=== PATIENT | female | born 1955 | race Caucasian/White ===

== ENCOUNTER 2023-12-16 13:37 | Outpatient (CLI) | payer MEDICARE, BC, SELFPAY | END 2023-12-16 13:38 | disposition home or self-care (01) | LOC: AMB 12-19 02:51 | PROVIDERS: PCP Family Medicine; Visit Provider Family Medicine | DX: R42 Dizziness and giddiness (principal) | CPT/HCPCS: A0425; A0429 ==

== ENCOUNTER 2023-12-16 14:12 | Emergency (ER) | payer MEDICARE, BC, SELFPAY ==
[2023-12-16 14:20] VITALS: BP 142/82; PULSE 89; RESP 24; TEMP 36.2; O2SAT 100; BMI 18.0
--- NOTE | 2023-12-16 14:58 | ED.GENADULT ---
HPI - General Adult General Chief complaint: Diarrhea Stated complaint: vertigo Time Seen by Provider: 12/16/23 14:42 History of Present Illness HPI narrative: This 68-year-old female comes in by ambulance stating that she felt lightheaded this morning. Just before the ambulance arrived she had an episode of diarrhea and after arrival here again another episode. She does not report any fever blood in the toilet. She does not report any pain but does state that her abdomen feels uncomfortable on exam. She has had nausea but no vomiting. Related Data Home Medications ?Medication ?Instructions ?Recorded ?Confirmed alendronate 70 mg tablet 70 mg PO 12/16/23 Previous Rx's ?Medication ?Instructions ?Recorded ondansetron HCl 4 mg tablet 4 mg PO Q6H #10 tabs 12/16/23 Allergies Allergy/AdvReac Type Severity Reaction Status Date / Time No Known Drug Allergies Allergy Verified 12/16/23 14:24 Review of Systems Status of ROS: Reports: 10 or more systems reviewed and unremarkable except as noted in History and below Narrative: Constitutional: No fevers, no weight gain or loss. Eyes: No discharge. No vision changes. HENT: No congestion, no sore throat, no ear pain. Cardiovascular: No chest pain, no palpitations. Respiratory: No shortness of breath, no wheezes, no cough. Gastrointestinal: No abdominal pain, no vomiting. She reports nausea and a couple episodes of diarrhea. Genitourinary: No dysuria, no hematuria. Musculoskeletal: Normal range of motion. Skin: No rashes, no pruritis. Neurological: No weakness, sensory change, speech change. She reports lightheadedness today. Endo/Heme/Allergies: No bruising or bleeding. No polydipsia. Pysch: no suicidality, no anxiety, no insomnia. All other systems reviewed and are negative. Exam Narrative: Exam Narrative: Constitutional: Well-developed, well-nourished, no acute distress. HEENT: Normocephalic, atraumatic. Neck: Normal range of motion. Nontender. Supple. Heart: Regular. No murmurs. Normal rate. Intact distal pulses. Lungs: Clear to auscultation. No chest discomfort. No wheezes, rhonchi, or rales. Abdomen: Normal bowel sounds. Nontender. No rebound tenderness. Genitalia: Deferred. Back: No midline tenderness. Normal range of motion. Extremities: Normal range of motion. No injury. Skin: Intact. No rash. Warm. No erythema or pallor. Neurologic: No altered sensation. No weakness. Alert and oriented. Psychiatric: No suicidality. No anxiety or depression. No insomnia. Nursing notes and vitals signs are reviewed. Const: Vital Signs, click to edit/add: Vital Signs - 24 hr 12/16/23 14:20 Temperature 97.2 F L Pulse Rate [Pulse Oximeter] 89 Respiratory Rate 24 Blood Pressure [Le ft Upper Arm] 142/82 H Pulse Oximetry 100 Oxygen Delivery Me thod Room Air Course Vital Signs Vital signs: Initial Vital Signs Temperature 97.2 F L 12/16/23 14:20 Temperature Source Temporal Artery Scan 12/16/23 14:20 Pulse Rate 89 12/16/23 14:20 Pulse Rhythm Regular 12/16/23 14:20 Respiratory Rate 24 12/16/23 14:20 Blood Pressure 142/82 H 12/16/23 14:20 Blood Pressure Mean 102 12/16/23 14:20 Blood Pressure Position Sitting 12/16/23 14:20 Pulse Oximetry 100 12/16/23 14:20 Oxygen Delivery Method Room Air 12/16/23 14:20 Vital Signs Temperature 97.2 F L 12/16/23 14:20 Pulse Rate 89 12/16/23 14:20 Respiratory Rate 24 12/16/23 14:20 Blood Pressure 142/82 H 12/16/23 14:20 Pulse Oximetry 100 12/16/23 14:20 Oxygen Delivery Method Room Air 12/16/23 14:20 Temperature 97.2 F L 12/16/23 14:20 Pulse Rate 89 12/16/23 14:20 Respiratory Rate 24 12/16/23 14:20 Blood Pressure 142/82 H 12/16/23 14:20 Pulse Oximetry 100 12/16/23 14:20 Oxygen Delivery Method Room Air 12/16/23 14:20 Medications Administered Medications: Generic Name Dose Route Start Last Admin Trade Name Freq PRN Reason Stop Dose Admin Sodium Chloride 1,000 mls @ 1,000 mls/hr 12/16/23 15:15 12/16/23 15:17 0.9 % Sodium Chloride 1000 Ml IV 12/16/23 16:14 1,000 mls/hr .Q1H ROBERTO Administration Discontinued Medications Generic Name Dose Route Start Last Admin Trade Name Chrissie PRN Reason Stop Dose Admin Ondansetron HCl 4 mg 12/16/23 15:08 12/16/23 15:17 Ondansetron 2 Mg/Ml Inj IVP 12/16/23 15:09 4 mg ONCE ONE Administration Medical Decision Making MDM Narrative Medical decision making narrative: This patient comes in with a couple episodes of diarrhea a and nausea as described above. An IV was established where labs were acquired. She also received a L of normal saline and 4 mg of Zofran. She states that she is feeling a little bit better and has not had any ongoing diarrhea. Her lab results returned with reassuring findings in her vital signs have been normal throughout. She is okay to be discharged home. I did provide a prescription for Zofran. Lab Data Labs: Lab Results 12/16/23 Range/Units 15:14 WBC 10.71 (4.50-11.00) K/uL RBC 4.13 (4.00-5.20) m/uL Hgb 12.3 (12.0-16.0) gm/dL Hct 37.0 (33.0-51.0) % MCV 90 (80-100) fL MCH 30 (26-34) pg MCHC 33 (32-36) gm/dL RDW Coeff of Sage 12.6 (11.5-15.5) % Plt Count 281 (140-440) K/uL Neut % (Auto) 85.2 H (42.0-72.0) % Lymph % (Auto) 9.1 L (20-44) % [place] % (Auto) 4.9 (0.0-11.0) % Eos % (Auto) 0.1 (0.0-7.0) % Baso % (Auto) 0.3 (0.0-3.0) % Neut # (Auto) 9.10 H (1.7-7.0) K/uL Lymph # (Auto) 1.00 (0.90-2.90) K/uL [place] # (Auto) 0.50 (0.00-0.90) K/UL Eos # (Auto) 0.01 (0.00-0.50) K/uL Baso # (Auto) 0.03 (0.00-0.30) K/uL Abs Immat Gran (auto) 0.04 (0.00-0.30) K/uL Imm/Tot Granulo (auto) 0.4 % Sodium 133 L (135-149) mmol/L Potassium 3.9 (3.6-5.1) mmol/L Chloride 103 (96-114) mmol/L Carbon Dioxide 22 (20-32) mmol/L Anion Gap 8 (7-15) mEq/L BUN 15 (7-30) mg/dL Creatinine 0.5 (0.5-1.5) mg/dL Estimated Creat Clear 39.92 Estimated GFR 101 ml/min Glucose 175 H (60-115) mg/dL Calcium 9.1 (8.4-10.6) mg/dL ECG Data Attestation: I personally reviewed and interpreted this ECG as follows: Interpretation: Normal sinus rhythm. Rate is 83 beats per minute. There are no ST or T-wave abnormalities. Discharge Plan Discharge Clinical Impression: Gastroenteritis Patient Disposition: Home w/ Parent or Adult Condition: Improved Additional Instructions: Take fluids and increase diet as tolerated. Take medication also as needed and directed. Follow up with MD return if symptoms are persistent or worsening. Prescriptions: New ondansetron HCl 4 mg tablet 4 mg PO Q6H Qty: 10 0RF No Action alendronate 70 mg tablet 70 mg PO Follow Up/Referrals: Julia Staton DO [Primary Care Provider] - Stand Alone Forms: [employer] Info Instructions
[2023-12-16 15:17] LABS: Basophils Absolute Auto 0.03 K/uL (0.00-0.30); Basophils Percent Auto 0.3 % (0.0-3.0); Eosinophils Absolute Auto 0.01 K/uL (0.00-0.50); Eosinophils Percent Auto 0.1 % (0.0-7.0); Hemoglobin* 12.3 gm/dL (12.0-16.0); Immature Granulocytes Abs Auto 0.04 K/uL (0.00-0.30); Immature Granulocytes Pct Auto 0.4 %; Lymphocytes Percent Auto 9.1 % (20-44); Mean Corpuscular HGB Conc 33 gm/dL (32-36); Mean Corpuscular Hemoglobin 30 pg (26-34); Mean Corpuscular Volume 90 fL (80-100); Monocytes Percent Auto 4.9 % (0.0-11.0); Neutrophils Percent Auto 85.2 % (42.0-72.0); Platelet Count* 281 K/uL (140-440); RDW Coefficient of Variation % 12.6 % (11.5-15.5); Red Blood Count 4.13 m/uL (4.00-5.20); White Blood Count* 10.71 K/uL (4.50-11.00)
[2023-12-16] MEDS: 0.9 % SODIUM CHLORIDE 1000 ml 1,000 ML IV (15:17)
[2023-12-16] MEDS: ONDANSETRON 2 MG/ML inj 4 MG IVP (15:17)
[2023-12-16 15:22] LABS: Slide Review Reflex No
[2023-12-16 15:37] LABS: Chloride* 103 mmol/L (96-114); Potassium* 3.9 mmol/L (3.6-5.1); Sodium* 133 mmol/L (135-149)
[2023-12-16 15:40] LABS: Anion Gap 8 mEq/L (7-15); Blood Urea Nitrogen* 15 mg/dL (7-30); Calcium* 9.1 mg/dL (8.4-10.6); Carbon Dioxide* 22 mmol/L (20-32); Creatinine* 0.5 mg/dL (0.5-1.5); Est. Creatinine Clearance* 39.92; Estimated Glomerular Filt Rate 101 ml/min; Glucose* 175 mg/dL (60-115)
[2023-12-16 16:25] VITALS: BP 132/72; PULSE 87
== END 2023-12-16 16:28 | disposition home or self-care (01) ==
PROVIDERS: Emergency Provider Emergency Medicine Emergency Medical Services; PCP Family Medicine
DX: K52.9 Noninfective gastroenteritis and colitis, unspecified (principal)
CPT/HCPCS: 36415; 80048; 85025; 93005; 96374; 99283; 99284; J2405; J7030